=== PATIENT | female | born 1970 | race Caucasian/White ===

== ENCOUNTER 2017-05-29 08:54 | Emergency (ER) | payer OTHER ==
[~2017-05-29] VITALS: Ht 154.9 cm; Wt 65.1 kg
[2017-05-29] MEDS ORDERED: DOXYCYCLINE HY100 MG PO (09:42)
[2017-05-29 09:50] VITALS: BP 122/69
== END 2017-05-29 09:56 | disposition home or self-care (01) ==
LOC: EME 08:54
DX: J20.9 Acute bronchitis, unspecified (principal); J02.9 Acute pharyngitis, unspecified; R51 Headache; F17.200 Nicotine dependence, unspecified, uncomplicated; Z88.2 Allergy status to sulfonamides
CPT/HCPCS: 99281; 99283